=== PATIENT | female | born 1985 | race American Indian/Alaskan Native ===

== ENCOUNTER 2016-12-06 22:00 | Emergency (ER) | payer SELFPAY ==
[2016-12-06] MEDS ORDERED: TYLENOL ONE (23:44)
[2016-12-06] MEDS ORDERED: TYLENOL PO ONE (23:46)
[2016-12-07] MEDS ORDERED: MOTRIN PO ONE (05:25)
[2016-12-07] MEDS ORDERED: MOTRIN ONE (05:29)
--- NOTE | 2016-12-07 05:44 | Emergency Department Report ---
HPI - General Chief Complaint: Fever Time Seen by Provider: 12/07/16 05:37 - HPI HPI: 31-year-old female comes in with complaint of body aches sore throat fever times one day. She reports that she has vomited twice. Patient reports that she has trouble swallowing. She denies any travel in the last 30 days. No past medical history currently takes no medication has no known drug allergies. ED Past Medical Hx - Past Medical History Previous Medical History?: No - Surgical History Past Surgical History?: No - Social History Smoking Status: Never Smoker Substance Use Type: None - Medications Home Medications: Home Medications Medication Instructions Recorded Confirmed Last Taken Type Ibuprofen [Motrin] 800 mg PO Q8HR PRN #30 tablet 12/07/16 Unknown Rx Penicillin Vk [Veetids TAB] 500 mg PO BID #40 tablet 12/07/16 Unknown Rx ED Review of Systems ROS: Stated complaint: BODY PAIN/SORE THROAT Other details as noted in HPI Constitutional: chills, fever ENT: throat pain Gastrointestinal: vomiting Physical Exam - Physical Exam Vital Signs: Vital Signs 12/06/16 23:42 Temperature 101.1 F H Pulse Rate 116 H Respiratory 22 Rate Blood Pressure 107/74 O2 Sat by Pulse 100 Oximetry Physical Exam: GENERAL: Alert and oriented x3, no apparent distress, Normal Gait, atraumatic. HEAD: Head is normocephalic and a-traumatic. EYES: Extra ocular muscles are intact. Pupils are equal, round, and reactive to light and accommodation. EARS: symetrical, atraumatic, non tender, ear canal clear and moderate cerumen, tympanic membrance non inflamed. gross auditory nml bilaterally. NOSE: Nose symetrical, Nontender,Nares appeared normal. MOUTH:Mouth is well hydrated and without lesions. Tonsils erythematous and swollen with thick white exudate, Uvula midline, Tongue not elevated. Mucous membranes are moist. Posterior pharynx clear, no exudate or lesions. Patent airways. NECK: Supple. Non edematous, No carotid bruits. No lymphadenopathy or thyromegaly. LUNGS: Symetrical with respiration, No wheezing, no rales or crackles, CTAB. HEART: S1, S2 present, regular rate and rhythm without murmur, no rubs, no gallops. NEUROLOGIC: No focal Deficit, Cranial nerves II through XII are grossly intact. No loss of sensation, No facial droop, Negative rhomberg. PSYCHIATRIC: Mood is congruent with affect, denies suicidal or homicidal ideations. SKIN: Warm and dry, No lesions, No ulceration or induration present ED Course Vital Signs 12/06/16 23:42 Temperature 101.1 F H Pulse Rate 116 H Respiratory 22 Rate Blood Pressure 107/74 O2 Sat by Pulse 100 Oximetry ED Medical Decision Making - Medical Decision Making Patient evaluated by this provider in fast track. This provider ordered Motrin 800 mg 1 tablet by mouth now. Critical care attestation.: If time is entered above; I have spent that time in minutes in the direct care of this critically ill patient, excluding procedure time. ED Disposition Clinical Impression: Acute pharyngitis Qualifiers: Pharyngitis/tonsillitis etiology: unspecified etiology Qualified Code(s): J02.9 - Acute pharyngitis, unspecified Disposition: DISCHARGED TO HOME OR SELFCARE Is pt being admited?: No Does the pt Need Aspirin: No Condition: Stable Instructions: Pharyngitis (ED) Additional Instructions: Take antibiotics as prescribed. Take Motrin for pain and fever. Follow-up with your primary care provider. Prescriptions: Ibuprofen [Motrin] 800 mg PO Q8HR PRN #30 tablet PRN Reason: Pain Penicillin Vk [Veetids TAB] 500 mg PO BID #40 tablet Referrals: PRIMARY CAREMD [Primary Care Provider] - 3-5 Days HORACIO JENSEN MD [Staff Physician] - 3-5 Days Forms: Work/School Release Form(ED)
[2016-12-07 06:23] VITALS: BP 113/70
== END 2016-12-07 06:24 | disposition home or self-care (01) ==
LOC: ED 22:00
DX: J02.9 Acute pharyngitis, unspecified (principal)
CPT/HCPCS: 87116; 87430; 99282